=== PATIENT | male | born 1945 | race Caucasian/White ===

== ENCOUNTER 2016-11-29 05:58 | Outpatient (CLI) | payer MEDICARE, OTHER ==
[~2016-11-29] VITALS: Ht 172.7 cm; Wt 127.4 kg
--- NOTE | ~2016-11-29 | CATH ---
Cardiac Diagnostic Report Demographics Patient Name AGUSTÍN Rios Gender Male Date of 1945 Age 71 year(s) Patient Number [id number] Date of Study 11/29/2016 Visit Number [id number] Room Number G6399 [place] [id number] Ht 172.72 cm Wt 127.4 kg Referring Marcelino Heck Ashleigh Primary Physician Physician MD Performing Ella More MD Secondary Physician Physician Diagnostic Ella More MD Assisting Physician Physician Interventional Physician Bundle Collector Physician Findings and Conclusions Diagnostic Findings and Conclusion Three vessel disease. 4 of 4 grafts patent. Diagnostic Recommendations Medical therapy. Manual pressure. Procedure Description The patient was brought to the diagnostic cardiac catheterization-EP laboratory in the fasting, non-sedated state. Informed consent was obtained in the written and verbal form after the risks and benefits were explained. The patient had no further questions and agreed to proceed. The planned puncture-incision site(s) were shaved and prepped with ChloraPrep and draped in the usual sterile manner. Conscious sedation, supplemental oxygen, and pain control medications were delivered by a registered nurse under physician guidance. Surface ECG rhythm, blood pressure measurement, and pulse oximetry were monitored throughout the procedure. Arterial access. The access site was infiltrated with lidocaine. The vessel was entered with the Seldinger technique. A sheath was advanced into the vessel and used for catheter placement. Selective left coronary angiography. A catheter was advanced into the left coronary vessel ostium under Fluoroscopic guidance. Contrast was injected by hand. Images were obtained in multiple projections. Selective right coronary angiography. A catheter was advanced into the right coronary vessel ostium under fluoroscopic guidance. Contrast was injected by hand. Images were obtained in multiple projections. Selective ADAIR graft angiography. A catheter was advanced into the left internal mammary graft ostium under fluoroscopic guidance. Contrast was injected by hand. Images were obtained in multiple projections. Selective SVG angiography. A catheter was advanced into the graft proximal anastomosis under fluoroscopic guidance. Contrast was injected by hand. Images were obtained in multiple projections. Left heart catheterization. A catheter was advanced across the aortic valve to the left ventricle under fluoroscopic guidance. Resting hemodynamics were obtained. Arterial artery hemostasis. Hemostasis was achieved. The patient was transferred to a regular nursing floor via cart accompanied by a nurse. The patient left the laboratory in stable condition. Diagnostic Cath Status: Elective Procedure Procedure Type Indications: Non-invasive tests a cardiolite test positive, Shortness of breath and Edema. The procedure was explained in detail to the patient. Risks, complications and alternative treatments were reviewed. Written consent was obtained. Medications Reviewed with Patient prior to Procedure. Angiographic Findings Dominance: Right Cardiac Arteries and Lesion Findings LMCA: Lesion on LMCA: Distal subsection.40% stenosis . Comments:large calcified. LAD: 75 % ISR. Diag 1 medium patent with competitive flow. There is a previous stent on Mid LAD Mid subsection showing focal ISR. Lesion on Prox LAD: Ostial.30% stenosis . Comments:Large. LCx: Abnormal.Nondominant. Sub totaled. RCA: Large dominant. PL medium normal. PDA medium normal.There is a previous stent on Prox RCA Proximal subsection showing wide patency. There is a previous stent on Mid RCA Mid subsection showing wide patency. Cardiac Grafts - There is a ADAIR graft that originates at the ADAIR and attaches to the Mid LAD (patent.). - There is a Vein graft that originates at the Aorta Left and attaches to the 1st Diag (Large patent.). - There is a Vein graft that originates at the Aorta Left and attaches to the 1st Ob Terese (large both limbs patent.). - There is a Vein graft that originates at the Aorta Left and attaches to the 2nd Ob Terese (large both limbs patent.). Coronary Tree Procedure Data Procedure Date Date: 11/29/2016Start: 08:02 AMEnd: 08:51 AM Entry Locations - Retrograde Percutaneous access was performed through the Right Femoral artery (Primary location). A 6 Fr sheath was inserted. Hemostasis was successfully obtained using Manual Compression. Closure Comments: held by María Evans for 20 minutes.. Procedure Medications Order and Administration + + + +-------+ !Time !Medication !Dosage !Route ! + + + +-------+ !11/29/2016 07:58 AM !Versed !1 mg !I.V. ! + + + +-------+ !11/29/2016 08:05 AM !Fentanyl !25 mcg !I.V. ! + + + +-------+ !11/29/2016 08:14 AM !Oxygen !2 l/min !NC ! + + + +-------+ !11/29/2016 08:27 AM !Oxygen ! !NC ! + + + +-------+ !11/29/2016 08:32 AM !Fentanyl !25 mcg !I.V. ! + + + +-------+ Devices Used - A6 Fr. BS JL 4 Diag. Catheterwas used for:Left coronary angiography. - A6 Fr. BS JR 4 Diag. Catheterwas used for:Right coronary angiography. - A6 Fr. BS Angled Pigtail Diag. Catheterwas used for:LV Pressures. Contrast Material - Isovue [id number] ml Fluoroscopy Time: Diagnostic: 10:06 minutes. Total: 10:06 minutes. Fluoroscopy Dose: Diagnostic: 1604 mGy. Total: 1604 mGy. Estimated Blood Loss: 5 ml. Medical History Performed Procedures and Imaging Results - Stress testing with SPECT MPIwas performed. Results were: Positive. Risk/Extent of ischemia was: Intermediate risk. History of Disease + + + + !Diagnosis !Date !Comments ! + + + + !Hypertension ! ! ! + + + + !CAD ! ! ! + + + + Allergies - Tape. 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 Admission Data Admission Date: 11/29/2016 Admission Time: 05:58 AM Admit Source: Other Insurance Payors: Medicare. Admission Medications + +------+------+ + + + + !Medication !Dosage!Times !Last !Last !Administered !Comments ! ! ! !Per !Delivery !Delivery ! ! ! ! ! !Day !Date !Time ! ! ! + +------+------+ + + + + !Aspirin ! ! ! ! !Yes ! ! !(any) ! ! ! ! ! ! ! + +------+------+ + + + + !ISADORA ! ! ! ! !Yes ! ! !Inhibitor ! ! ! ! ! ! ! !(any) ! ! ! ! ! ! ! + +------+------+ + + + + !Statin (any)! ! ! ! !Yes ! ! + +------+------+ + + + + Hemodynamics Condition: Rest Estimated: Heart Rate: 57 bpm Pressures (mmHg) +-----+ + !Site !Pressure ! +-----+ + !AO !167/62 (99) ! +-----+ + !LV !162/10 ,28 ! +-----+ + !LV !162/8 ,28 ! +-----+ + !AO !157/58 (102) ! +-----+ + !LV !161/11 ,32 ! +-----+ + Valve Gradients and Areas + +---------+---------+---------+ +---------+ + !Valve !Peak !Mean !Area !Index !Flow !Source ! + +---------+---------+---------+ +---------+ + !Aortic !2 !0 ! ! ! ! ! + +---------+---------+---------+ +---------+ + !Aortic !2 !0 ! ! ! ! ! + +---------+---------+---------+ +---------+ + Shunts Oxygen Values O2 Capacity 136 Discharge Data Discharge Date: 11/29/2016 Hospital Status: Outpatient Signatures dtt: Derik Jaramillo (cardio) dtd: 11/29/16 0802 Physician Self Edit
[~2016-11-29 05:58] MED LIST: ASPIRIN EC81 MG PO; CELEXA40 MG PO; CPAP INH; FISH OIL 1,2001 EAC1 PO; IRON65 PO; LASIX40 MG PO; MULTIVITAMINS1 EAC2 PO; OXYGEN M-15 INH; PRADAXA150 MG PO; PRESERVISION A1 EACH PO; VITAMIN D2000 UNI1 PO; ZESTRIL2.5 MG PO; ZOCOR20 MG PO; ZYLOPRIM300 MG PO
== END 2016-11-29 15:30 | disposition disaster alternative care site (69) ==
LOC: GPCU 05:58 → GPOC 05:58
PROC: 4A023N7 Measurement of Cardiac Sampling and Pressure, Left Heart, Percutaneous Approach (ICD-10-PCS; principal; 2016-11-29)
PROC: B2121ZZ Fluoroscopy of Single Coronary Artery Bypass Graft using Low Osmolar Contrast (ICD-10-PCS; principal; 2016-11-29)
DX: I25.10 Atherosclerotic heart disease of native coronary artery without angina pectoris (principal); I10 Essential (primary) hypertension; Z95.1 Presence of aortocoronary bypass graft; I48.0 Paroxysmal atrial fibrillation; Z79.01 Long term (current) use of anticoagulants; E78.5 Hyperlipidemia, unspecified; E03.9 Hypothyroidism, unspecified; G47.33 Obstructive sleep apnea (adult) (pediatric)
CPT/HCPCS: J1644; J2001; J2250; J3010; J7030